=== PATIENT | female | born 1985 | race Caucasian/White ===

== ENCOUNTER 2018-10-01 10:13 | Emergency (ER) | payer BC ==
[~2018-10-01] VITALS: Ht 165.1 cm; Wt 68.0 kg
[2018-10-01] MEDS ORDERED: ZOLOFT25 MG PO (10:24)
[2018-10-01] MEDS ORDERED: PREDNISONE 10 M10 MG PO (10:25)
[2018-10-01] MEDS ORDERED: ACCUNEB SO1.25 MG/1 INH (10:25)
[2018-10-01] MEDS ORDERED: TESSALON PERLE100 M1 PO (10:25)
[2018-10-01] MEDS ORDERED: DOXYCYCLINE 10100 MG PO (10:25)
[2018-10-01] MEDS ORDERED: MUCINEX600 MG PO (10:26)
[2018-10-01 10:34] LABS: URINE BILIRUBIN NEGATIVE (Negative); URINE BLOOD NEGATIVE (Negative); URINE CLARITY CLEAR; URINE COLOR YELLOW; URINE GLUCOSE-RANDOM* NEGATIVE (Negative); URINE KETONES NEGATIVE (Negative); URINE LEUKOCYTES TRACE (Negative); URINE NITRITE NEGATIVE (Negative); URINE PROTEIN (DIPSTICK) NEGATIVE (Negative); URINE SPECIFIC GRAVITY 1.025 (1.005-1.035); URINE UROBILINOGEN 0.2 E.U./dl (0.2-1.0)
[2018-10-01 11:26] LABS: BASOPHILS 0.3 % (0.0-2.0); EOSINOPHILS 0.5 % (0.0-3.0); HEMATOCRIT 41.4 % (37.0-47.0); HEMOGLOBIN 14.3 gm/dL (12.0-15.0); LYMPHOCYTES 31.5 % (24.0-44.0); MCH 31.3 pg (26.0-34.0); MCHC 34.4 g/dL (28.0-37.0); MCV 90.8 fL (80.0-100.0); MONOCYTES 7.1 % (1.0-8.0); PLATELET COUNT 210 thou/uL (150-400); POLYS 60.6 % (36.0-66.0); RBC 4.56 mil/uL (4.20-5.00); RDW 11.9 % (10.5-14.5)
[2018-10-01 11:36] LABS: CALCIUM 9.5 mg/dL (8.5-10.1); CREATININE 0.7 mg/dL (0.6-1.0)
[2018-10-01 11:39] LABS: POTASSIUM 2.9 mmol/L (3.5-5.1)
[2018-10-01 11:43] LABS: ALBUMIN 3.9 g/dL (3.4-5.0); TOTAL BILIRUBIN 0.5 mg/dL (<0.1-1.0); TOTAL PROTEIN 7.9 g/dL (6.4-8.2)
[2018-10-01] MEDS ORDERED: ONDANSETRON HCL4 M2 PO (12:27)
[2018-10-01] MEDS ORDERED: POTASSIUM20 PO (12:27)
[2018-10-01] MEDS ORDERED: ACETAMINOPHEN-1 EAC1 PO (12:27)
[2018-10-01 12:30] VITALS: BP 110/63
== END 2018-10-01 12:30 | disposition home or self-care (01) ==
LOC: ER 10:13
PROVIDERS: Physician Assistant
DX: E87.6 Hypokalemia (principal); E86.0 Dehydration; R11.2 Nausea with vomiting, unspecified; Z79.899 Other long term (current) drug therapy; Z88.2 Allergy status to sulfonamides